=== PATIENT | female | born 1960 | race Caucasian/White ===

== ENCOUNTER 2025-02-21 08:56 | Outpatient (REF) | payer MEDICARE, SELFPAY ==
--- NOTE | 2025-02-21 | EMG_ITS ---
Patient Complaints: Bilateral evaluation carpal tunnel, cubital tunnel and cervical radiculopathy Bilateral median and ulnar motor and sensory studies were performed bilateral radial sensory studies were performed. Bilateral EMG needle examination was performed. Impression: 1. Chronic bilateral mid to lower cervical radiculopathy 2. 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
--- OUTSIDE RECORDS SUMMARY | 2025-02-21 09:48 | XMS_ITS | Patient Health Record ---
Author Organization [facility] Address [address] [place] [address] Care Team Providers Care Remote Broadcast Technician Name Role Phone Provider, [facility] Provider Reason For Referral No Information Plan Of Treatment No Information
--- OUTSIDE RECORDS SUMMARY | 2025-02-21 09:48 | XMS_ITS | Clinical Summary ---
Author Organization [facility] Address [address] [place], [place] [id number] Phone Care Team Providers Care Instructor Of Sociology Name Role Phone Pravin Trinaedwin Primary Care Provider [phone] Allergies No known active allergies Medications pediatric multivit with FA-zinc (CHEWABLE MULTIVIT-A,B,D, E,K,ZN) 1,000-800 unit-mcg Chew Active levothyroxine (SYNTHROID, LEVOTHROID) 88 MCG tablet Take 1 tablet by mouth every morning. 05/23/2023 Active gabapentin (NEURONTIN) 300 MG capsule Take 300 mg by mouth nightly at bedtime. 04/08/2023 Active fluticasone propionate (FLONASE) 50 mcg/actuation nasal spray 2 sprays. 03/06/2011 Active escitalopram oxalate (LEXAPRO) 20 MG tablet Take 1 tablet by mouth every morning. 06/09/2023 Active clonazePAM (KLONOPIN) 1 MG tablet Take 1 mg by mouth 2 (two) times a day as needed for anxiety. 06/09/2023 Active cholecalciferol , vitamin D3, (VITAMIN D3) 10 mcg (400 unit) capsule Active atorvastatin (LIPITOR) 20 MG tablet Take 20 mg by mouth daily. Active venlafaxine (EFFEXOR-XR) 150 MG 24 hr capsule Active diclofenac sodium (VOLTAREN) 75 MG EC tablet Take 75 mg by mouth 2 (two) times a day with meals. 05/18/2023 Active Active Problems Problem Noted Date Diagnosed Date Dysthymia 06/24/2023 Gastroesophageal reflux disease 06/24/2023 Hidradenitis 06/24/2023 Hypercholesterolemia 06/24/2023 Hypothyroid 06/24/2023 Solitary cyst of breast 06/24/2023 Immunizations No known immunizations Social History Tobacco Use Types Packs/Day Years Used Date Smoking Tobacco: Never Assessed Education Answer Date Recorded Are you interested in more education? Not on pablo e 06/24/2023 Are you concerned about learning? Not on file 06/24/2023 No 06/24/2023 No 06/24/2023 Digital Access Answer Date Recorded No 06/24/2023 No 06/24/2023 Reliable internet access at home? Not on file 06/24/2023 Device with a working camera? Not on file Comments Unknown Sex and Gender Information Value Date Recorded Sex Assigned at Not on file Legal Sex Female 9:49 PM EDT Gender Identity Not on file Sexual Orientation Not on file Last Filed Vital Signs Vital Sign Reading Time Taken Comments Blood Pressure 146/90 06/24/2023 9:22 AM EST Pulse 80 06/24/2023 9:22 AM EST Temperature 37.1 C (98.8 F) 06/24/2023 9:22 AM EST Respiratory Rate 18 06/24/2023 9:22 AM EST Oxygen Saturation 99% 06/24/2023 9:22 AM EST Inhaled Oxygen Concentration - - Weight 68.4 kg (150 lb 14.4 oz) 015 11:26 AM EDT Height 154.9 cm (5' 1 ) 12/18/2014 11:2 6 AM EDT Body Mass Index 28.51 12/18/2014 11:26 AM EDT Plan of Treatment Health Maintenance Due Date Last Done Comments Adult Td,Tdap Booster 1959 LIPID PANEL 1959 TSH LEVEL 1959 DEPRESSION SCREENING 1971 SMOKING Hx and SMOKELESS TOB ACCO SCREENING 09/07/1972 HEPATITIS C SCREENING 09/07/1977 HIV ONE-TIME SCREENING (18-6 5 YEARS) 09/07/1977 MAMMOGRAM 1999 COLOGUARD 09/07/2004 COLONOSCOPY 09/07/2004 COLORECTAL CANCER SCREENING 09/07/2004 FIT TEST 09/07/2004 FOBT 09/07/2004 SIGMOIDOSCOPY 09/07/2004 VIRTUAL COLONOSCOPY 09/07/2004 PNEUMOCOCCAL VACCINES (50+ y ears) (1 of 1 - PCV) 09/07/2009 ZOSTER VACCINES (1 of 2) 09/07/2009 COVID-19 VACCINE (1 - 2023-2 5 season) 2024 OSTEOPOROSIS SCREENING INITI AL (ONE-TIME) 09/07/2024 RSV VACCINE (1 - 1-dose 75+ series) 09/07/2034 HEPATITIS A VACCINES Aged Out No long er eligible based on patient's age to complete this topic HIB VACCINES Aged Out No longer eligi ble based on patient's age to complete this topic MENINGOCOCCAL VACCINES (ACWY) Aged Out No longer eligible based on patient's age to complete this topic MENINGOCOCCAL VACCINES (B) Aged Out N o longer eligible based on patient's age to complete this topic Medical Devices Not on file Insurance MEDICARE PART A & B [facility] MEDICARE PART A & B [place] [facility] PART [facility] [place] [facility] [facility] B [address] [place], [place] [id number] MEDICARE PART A & B [id number] [place] [address] MEDICARE PART A & [place] Care Teams Instructor Of Sociology Relationship Specialty Start Date End Date Jamaal Costello DO [address] [place] [address] PCP - General Family Medicine 06/24/23 Additional Source Comments The information contained in this document represents components of the legal health record. It is not the complete legal health record.[facility]
== END 2025-02-21 08:57 | disposition home or self-care (01) ==
LOC: HO.NEURO 08:56
PROVIDERS: Visit Provider Nurse Practitioner
DX: M54.12 Radiculopathy, cervical region (principal)
CPT/HCPCS: 95886; 95913

== ENCOUNTER → 2025-02-21 09:02 | Outpatient (BNV) | payer MEDICARE, SELFPAY | PROVIDERS: Visit Provider Psychiatry & Neurology Neurology | DX: M54.12 Radiculopathy, cervical region (principal) | CPT/HCPCS: 95886; 95913 ==